=== PATIENT | female | born 1945 | race Hispanic/Latino ===

== ENCOUNTER → 2021-04-17 | Outpatient (CLI) | payer MEDICARE ==
[2021-04-17 15:41] LABS: BASOPHILS % (AUTO) 0.3 % (0.0-5.0); EOSINOPHILS % (AUTO) 0.5 % (0.0-8.0); HEMATOCRIT 30.1 % (36-48); LYMPHOCYTES % (AUTO) 33.4 % (21.0-51.0); MEAN CORPUSCULAR HEMOGLOBIN 29.9 pg (27.0-33.0); MEAN CORPUSCULAR HGB CONC 34.6 g/dL (32.0-36.0); MEAN CORPUSCULAR VOLUME 86.5 fL (79-99); MONOCYTES % (AUTO) 16.7 % (3.0-13.0); NEUTROPHILS % (AUTO) 48.8 % (40.0-77.0); PLATELET COUNT (AUTO) 208 K/uL (130-400); RED BLOOD CELL COUNT(AUTO) 3.48 MIL/uL (4.00-5.50); RED CELL DISTRIBUTION WIDTH 13.3 % (11.0-15.5); WHITE BLOOD COUNT (AUTO) 3.9 K/uL (4.8-10.8)
[2021-04-17 15:53] LABS: ALBUMIN 3.5 g/dL (3.5-5.0); BILIRUBIN,TOTAL 0.5 mg/dL (0.2-1.0); CREATININE 0.7 mg/dL (0.5-1.5); TOTAL PROTEIN, SERUM 7.6 g/dL (6.0-8.3)
[2021-04-17 16:10] LABS: POTASSIUM 2.8 mmol/L (3.5-5.1)
== END | disposition home or self-care (01) ==
LOC: RAH 14:15
PROVIDERS: ATTEND Internal Medicine Pulmonary Disease
DX: J44.9 Chronic obstructive pulmonary disease, unspecified (principal); K44.9 Diaphragmatic hernia without obstruction or gangrene; M47.815 Spondylosis without myelopathy or radiculopathy, thoracolumbar region
CPT/HCPCS: 36415; 71250; 80053; 85025; 86235

== ENCOUNTER 2021-07-21 11:25 | Inpatient (IN) | payer MEDICARE ==
[~2021-07-21] VITALS: Ht 162.6 cm; Wt 58.2 kg
[2021-07-21 12:16] LABS: BASOPHILS % (AUTO) 0.3 % (0.0-5.0); HEMATOCRIT 30.3 % (36-48); LYMPHOCYTES % (AUTO) 22.3 % (21.0-51.0); MEAN CORPUSCULAR HEMOGLOBIN 31.9 pg (27.0-33.0); MEAN CORPUSCULAR VOLUME 84.2 fL (79-99); NEUTROPHILS % (AUTO) 62.1 % (40.0-77.0); PLATELET COUNT (AUTO) 163 K/uL (130-400); RED CELL DISTRIBUTION WIDTH 11.7 % (11.0-15.5); WHITE BLOOD COUNT (AUTO) 3.5 K/uL (4.8-10.8)
[2021-07-21] MEDS ORDERED: ONDANSETRON 4MG INJ IVP ONE (12:30)
[2021-07-21] MEDS ORDERED: 0.9%NACL 1000ML 1,000 ML IV ONE (12:30)
[2021-07-21 12:39] LABS: APPEARANCE,URINE Clear (CLEAR); BILIRUBIN,URINE Negative (NEGATIVE); COLOR,URINE Yellow (YELLOW); GLUCOSE, URINE (UA) Negative (NEGATIVE); KETONES,URINE Negative (NEGATIVE); LEUKOCYTE ESTERASE ,URINE Negative (NEGATIVE); NITRATE,URINE Negative (NEGATIVE); OCCULT BLOOD,URINE Negative (NEGATIVE); PROTEIN,URINE Negative (NEGATIVE); UROBILINOGEN,URINE 0.2 mg/dL (0.2-1.0)
[2021-07-21 12:41] LABS: ALBUMIN 3.4 g/dL (3.5-5.0); BILIRUBIN,TOTAL 0.4 mg/dL (0.2-1.0); CREATININE 1.5 mg/dL (0.5-1.5); MAGNESIUM 1.9 mg/dL (1.80-2.40); TOTAL PROTEIN, SERUM 7.2 g/dL (6.0-8.3)
[2021-07-21 12:42] LABS: POTASSIUM 2.2 mmol/L (3.5-5.1)
[2021-07-21] MEDS ORDERED: POTASSIUM CHLORIDE 10% ELIXIR 20 MEQ/15 ML UDCUP PO ONE (13:30)
[2021-07-21] MEDS ORDERED: LIDOCAINE HCL-MPF 1% 2ML VIAL ONE (13:55)
[2021-07-21] MEDS ORDERED: POTASSIUM CHLORIDE 20MEQ/100ML 200 ML IV ONE (13:55)
[2021-07-21 13:56] LABS: CREATININE 1.4 mg/dL (0.5-1.5)
[2021-07-21 13:59] LABS: POTASSIUM 2.9 mmol/L (3.5-5.1)
[2021-07-21] MEDS ORDERED: POTASSIUM CHLORIDE 10MEQ/100ML 10 MEQ/100 ML ML IV SCH (14:30)
[2021-07-21 15:40] LABS: CHLORIDE,URINE RANDOM 63 mmol/L (110-250); CREATININE,URINE RANDOM 66 mg/dL (30-135); POTASSIUM,URINE RANDOM 22 mmol/L (25-125); SODIUM,URINE RANDOM 54 mmol/l (40-220)
[2021-07-21 16:00] VITALS: BP 120/59
[2021-07-21 16:12] LABS: THYROID STIMULATING HORMONE 0.88 uIU/mL (0.36-3.74); URIC ACID 4.9 mg/dL (2.6-7.2)
[2021-07-21] MEDS ORDERED: ATEN1TAB3 PO (16:12)
[2021-07-21] MEDS ORDERED: AMLO-143 PO (16:13)
[2021-07-21 16:53] LABS: CREATININE 1.3 mg/dL (0.5-1.5); POTASSIUM 3.1 mmol/L (3.5-5.1)
[2021-07-21] MEDS: AZTREONAM 1 GM VIAL IVP SCH (18:57)
[2021-07-21 19:55] VITALS: BP 93/45
[2021-07-21 20:22] LABS: CREATININE 1.3 mg/dL (0.5-1.5); POTASSIUM 3.2 mmol/L (3.5-5.1)
[2021-07-21 20:30] VITALS: BP 106/49
[2021-07-22 00:12] VITALS: BP 101/48
[2021-07-22 02:01] LABS: BASOPHILS % (AUTO) 0.3 % (0.0-5.0); HEMATOCRIT 28.5 % (36-48); MEAN CORPUSCULAR HEMOGLOBIN 30.9 pg (27.0-33.0); MEAN CORPUSCULAR HGB CONC 35.4 g/dL (32.0-36.0); MEAN CORPUSCULAR VOLUME 87.2 fL (79-99); MONOCYTES % (AUTO) 19.4 % (3.0-13.0); PLATELET COUNT (AUTO) 141 K/uL (130-400); RED BLOOD CELL COUNT(AUTO) 3.27 MIL/uL (4.00-5.50); WHITE BLOOD COUNT (AUTO) 2.9 K/uL (4.8-10.8)
[2021-07-22] MEDS: AZTREONAM 1 GM VIAL IVP SCH ×3 (02:13→18:25)
[2021-07-22 02:33] LABS: BILIRUBIN,TOTAL 0.4 mg/dL (0.2-1.0); CREATININE 1.2 mg/dL (0.5-1.5); PHOSPHORUS 1.9 mg/dL (2.5-4.9); POTASSIUM 3.1 mmol/L (3.5-5.1); TOTAL PROTEIN, SERUM 6.7 g/dL (6.0-8.3)
[2021-07-22] MEDS ORDERED: LIDOCAINE HCL-MPF 1% 2ML VIAL IV PRN (03:30)
[2021-07-22] MEDS ORDERED: POTASSIUM CHLORIDE 20MEQ/100ML 100 ML IV PRN (03:30)
[2021-07-22] MEDS: POTASSIUM CHLORIDE 10% ELIXIR 20 MEQ/15 ML UDCUP PO PRN ×3 (03:55→09:15)
[2021-07-22 04:09] VITALS: BP 98/51
[2021-07-22 05:17] LABS: BASOPHILS % (MANUAL) 1 % (0-2); LYMPHOCYTES % (MANUAL) 34 % (22-44); MAN.DIFF COMMENT-IMPRESSION MANUAL DIFFERENTIAL; MONOCYTES % (MANUAL) 5 % (2-9); PLATELET MORPHOLOGY COMMENT ADEQUATE; SEGMENTED NEUTROPHILS % 60 % (40-70)
[2021-07-22 07:00] VITALS: BP 101/43
[2021-07-22 08:53] LABS: CREATININE 1.2 mg/dL (0.5-1.5); POTASSIUM 3.5 mmol/L (3.5-5.1)
[2021-07-22] MEDS ORDERED: 0.9% NACL 500ML IV.SOLN 500 ML IV ONE (10:00)
[2021-07-22] MEDS ORDERED: 0.9%NACL 1000ML 1,000 ML IV SCH (10:00)
[2021-07-22] MEDS: FAMOTIDINE 20MG TAB PO SCH (10:58)
[2021-07-22] MEDS ORDERED: ENOXAPARIN SODIUM 40 MG/0.4 ML SYRINGE SQ ONE (11:00)
[2021-07-22] MEDS ORDERED: FAMOTIDINE 20MG TAB PO ONE (11:00)
[2021-07-22 11:29] VITALS: BP 104/49
[2021-07-22 12:57] LABS: CREATININE 1.1 mg/dL (0.5-1.5); POTASSIUM 3.5 mmol/L (3.5-5.1)
[2021-07-22 16:00] VITALS: BP 106/50
[2021-07-22 16:36] LABS: CREATININE 1.1 mg/dL (0.5-1.5); POTASSIUM 3.8 mmol/L (3.5-5.1)
[2021-07-22 19:00] VITALS: BP 123/66
[2021-07-22 20:33] LABS: CREATININE 1.1 mg/dL (0.5-1.5)
[2021-07-23] VITALS: BP 125/58
[2021-07-23 01:14] LABS: HEMATOCRIT 28.1 % (36-48); MEAN CORPUSCULAR HEMOGLOBIN 31.3 pg (27.0-33.0); MEAN CORPUSCULAR HGB CONC 35.2 g/dL (32.0-36.0); MEAN CORPUSCULAR VOLUME 88.9 fL (79-99); RED BLOOD CELL COUNT(AUTO) 3.16 MIL/uL (4.00-5.50); RED CELL DISTRIBUTION WIDTH 12.2 % (11.0-15.5)
[2021-07-23 01:32] LABS: POTASSIUM 3.7 mmol/L (3.5-5.1)
[2021-07-23] MEDS: AZTREONAM 1 GM VIAL IVP SCH ×2 (01:39→07:48)
[2021-07-23 04:00] VITALS: BP 95/58
[2021-07-23 05:15] LABS: CREATININE 0.9 mg/dL (0.5-1.5)
[2021-07-23] MEDS: ENOXAPARIN SODIUM 40 MG/0.4 ML SYRINGE SQ SCH (07:48)
[2021-07-23] MEDS: FAMOTIDINE 20MG TAB PO SCH (07:48)
[2021-07-23 08:18] VITALS: BP 107/55
[2021-07-23 11:47] VITALS: BP 101/63
[2021-07-23 12:57] LABS: POTASSIUM 3.1 mmol/L (3.5-5.1)
[2021-07-23] MEDS ORDERED: SODIUM CHLORIDE 1,000 MG TAB PO SCH (15:30)
[2021-07-23] MEDS: KCL 20 MEQ ERTAB PO PRN ×2 (15:31→17:12)
[2021-07-23 15:59] VITALS: BP 140/64
[2021-07-23 19:00] VITALS: BP 135/68
[2021-07-23] MEDS: SODIUM CHLORIDE 1,000 MG TAB PO SCH (20:40)
[2021-07-24] VITALS: BP 140/65
[2021-07-24 04:00] VITALS: BP 125/60
[2021-07-24 04:15] LABS: HEMATOCRIT 29.3 % (36-48); MEAN CORPUSCULAR HEMOGLOBIN 31.4 pg (27.0-33.0); MEAN CORPUSCULAR HGB CONC 35.2 g/dL (32.0-36.0); MEAN CORPUSCULAR VOLUME 89.3 fL (79-99); RED BLOOD CELL COUNT(AUTO) 3.28 MIL/uL (4.00-5.50); RED CELL DISTRIBUTION WIDTH 12.4 % (11.0-15.5); WHITE BLOOD COUNT (AUTO) 3.6 K/uL (4.8-10.8)
[2021-07-24 04:36] LABS: CREATININE 0.9 mg/dL (0.5-1.5); MAGNESIUM 1.6 mg/dL (1.80-2.40); POTASSIUM 4.1 mmol/L (3.5-5.1)
[2021-07-24] MEDS ORDERED: MAGNESIUM 2GM PREMIX 50ML 50 ML IV ONE (08:00)
[2021-07-24] MEDS: SODIUM CHLORIDE 1,000 MG TAB PO SCH (08:58)
[2021-07-24] MEDS: ENOXAPARIN SODIUM 40 MG/0.4 ML SYRINGE SQ SCH (08:59)
[2021-07-24] MEDS: FAMOTIDINE 20MG TAB PO SCH (09:12)
[2021-07-24 09:44] VITALS: BP 118/61
[2021-07-24 11:55] VITALS: BP 114/64
== END 2021-07-24 12:40 | disposition home or self-care (01) | DRG 644 ==
LOC: EDH 11:25 → EDHIP 15:01 → 4CH 16:40
PROVIDERS: ADMIT Hospitalist; ATTEND Hospitalist
DX: E22.2 Syndrome of inappropriate secretion of antidiuretic hormone (principal); N39.0 Urinary tract infection, site not specified; N17.9 Acute kidney failure, unspecified; E86.1 Hypovolemia; E88.09 Other disorders of plasma-protein metabolism, not elsewhere classified; E87.6 Hypokalemia; E87.8 Other disorders of electrolyte and fluid balance, not elsewhere classified; Z88.0 Allergy status to penicillin; Z90.710 Acquired absence of both cervix and uterus; Z20.822 Contact with and (suspected) exposure to COVID-19; I10 Essential (primary) hypertension; I95.9 Hypotension, unspecified; I12.9 Hypertensive chronic kidney disease with stage 1 through stage 4 chronic kidney disease, or unspecified chronic kidney disease; N18.31 Chronic kidney disease, stage 3a; E83.42 Hypomagnesemia; T50.995A Adverse effect of other drugs, medicaments and biological substances, initial encounter; Y92.89 Other specified places as the place of occurrence of the external cause
CPT/HCPCS: 36415; 70450; 71045; 74018; 80048; 80053; 81003; 82436; 82533; 82570; 83036; 83605; 83735; 83930; 83935; 84100; 84133; 84145; 84300; 84443; 84484; 84550; 85025; 85027; 87635; 93005; 99291; G0378; J1650; J2405; J3475; J3480; J3490; J7030; J7040